=== PATIENT | male | born 1980 | race African-American/Black ===

== ENCOUNTER 2016-08-07 16:15 | Emergency (ER) | payer OTHER ==
--- NOTE | 2016-08-07 16:37 | ED ---
General Adult HPI - General Chief complaint: Recheck/Abnormal Lab/Rx Stated complaint: Syncope Time Seen by Provider: 08/07/16 16:24 Source: patient, RN notes reviewed Mode of arrival: ambulatory Limitations: no limitations - History of Present Illness Initial comments: 36-year-old male presents emergency Department for syncopal episode. Patient states that it single episode on Friday. Patient states he was outside I going talking on the phone states that he then woke up to his friends putting them in a vehicle. Patient did complain of left-sided pain in his chest wall and abdomen region at that time. Patient was seen at [facility] in which she states that they've evaluated him and discharge him with no testing. Patient states that he is advised to give second opinion he went to urgent care today felt that he had an abnormal EKG and symptoms emergency department. Patient denies any chest pain at this time is no shortness of breath. Patient denies fever, chills, headache, dizziness, focal weakness. - Related Data Home Medications Medication Instructions Recorded Confirmed No Known Home Medications [No 08/07/16 08/07/16 Known Home Medications] Allergies Allergy/AdvReac Type Severity Reaction Status Date / Time No Known Allergies Allergy Verified 08/07/16 16:38 Review of Systems ROS Statement: Those systems with pertinent positive or pertinent negative responses have been documented in the HPI. ROS Other: All systems not noted in ROS Statement are negative. Past Medical History Past Medical History: No Reported History Additional Past Medical History / Comment(s): anal fissure History of Any Multi-Drug Resistant Organisms: None Reported Additional Past Surgical History / Comment(s): nasal, CYST ON TAILBONE Past Psychological History: No Psychological Hx Reported Smoking Status: Former smoker Past Alcohol Use History: Occasional Past Drug Use History: Marijuana General Exam Limitations: no limitations General appearance: alert, in no apparent distress Head exam: Present: atraumatic, normocephalic, normal inspection Neck exam: Present: normal inspection, full ROM. Absent: tenderness, meningismus, lymphadenopathy Respiratory exam: Present: normal lung sounds bilaterally, chest wall tenderness (Mild left chest wall tenderness). Absent: respiratory distress, wheezes, rales, rhonchi, stridor Cardiovascular Exam: Present: regular rate, normal rhythm, normal heart sounds. Absent: systolic murmur, diastolic murmur, rubs, gallop, clicks GI/Abdominal exam: Present: soft, normal bowel sounds. Absent: distended, tenderness, guarding, rebound, rigid Course Vital Signs 08/07/16 08/07/16 16:18 17:38 Temperature 96.9 F L 97.6 F Pulse Rate 74 64 Respiratory 18 15 Rate Blood Pressure 133/63 140/88 O2 Sat by Pulse 98 100 Oximetry EKG Findings - EKG Comments: EKG Findings:: EKG performed at 16:27 normal sinus rhythm with a rate of 67. Normal 186 QRS duration 90 QT/QTC 372/393 Medical Decision Making - Medical Decision Making 36-year-old male presented for syncopal episode that happened on Friday. Patient's lab work is unremarkable at this time. EKG within normal limits chest x-ray within normals. Patient will be discharged at this time this most likely is a vasovagal episode as he was arguing. Patient be discharged with follow-up with primary care physician return parameters were discussed. - Lab Data Result diagrams: 08/07/16 16:35 08/07/16 16:35 Lab Results 08/07/16 08/07/16 08/07/16 Range/Units 16:35 16:35 16:35 WBC 6.1 (3.8-10.6) k/uL RBC 4.84 (4.30-5.90) m/uL Hgb 14.8 (13.0-17.5) gm/dL Hct 44.4 (39.0-53.0) % MCV 91.9 (80.0-100.0) fL MCH 30.6 (25.0-35.0) pg MCHC 33.3 (31.0-37.0) g/dL RDW 13.4 (11.5-15.5) % Plt Count 281 (150-450) k/uL Neutrophils % 50 % Lymphocytes % 42 % Monocytes % 4 % Eosinophils % 2 % Basophils % 0 % Neutrophils # 3.0 (1.3-7.7) k/uL Lymphocytes # 2.6 (1.0-4.8) k/uL Monocytes # 0.3 (0-1.0) k/uL Eosinophils # 0.1 (0-0.7) k/uL Basophils # 0.0 (0-0.2) k/uL PT (9.0-12.0) sec INR (<1.1) APTT (22.0-30.0) sec D-Dimer (<0.60) mg/L FEU Sodium 139 (137-145) mmol/L Potassium 3.8 (3.5-5.1) mmol/L Chloride 104 (98-107) mmol/L Carbon Dioxide 25 (22-30) mmol/L Anion Gap 10 mmol/L BUN 10 (9-20) mg/dL Creatinine 1.03 (0.66-1.25) mg/dL Est GFR (MDRD) Af Amer >60 (>60 ml/min/1.73 sqM) Est GFR (MDRD) Non-Af >60 (>60 ml/min/1.73 sqM) Glucose 116 H (74-99) mg/dL Calcium 9.3 (8.4-10.2) mg/dL Total Bilirubin 1.0 (0.2-1.3) mg/dL AST 30 (17-59) U/L ALT 36 (21-72) U/L Alkaline Phosphatase 68 (38-126) U/L Total Creatine Kinase 417 H (55-170) U/L CK-MB (CK-2) 3.0 H* (0.0-2.4) ng/mL CK-MB (CK-2) Rel Index 0.7 Troponin I <0.012 (0.000-0.034) ng/mL Total Protein 7.5 (6.3-8.2) g/dL Albumin 4.2 (3.5-5.0) g/dL 08/07/16 Range/Units 16:35 WBC (3.8-10.6) k/uL RBC (4.30-5.90) m/uL Hgb (13.0-17.5) gm/dL Hct (39.0-53.0) % MCV (80.0-100.0) fL MCH (25.0-35.0) pg MCHC (31.0-37.0) g/dL RDW (11.5-15.5) % Plt Count (150-450) k/uL Neutrophils % % Lymphocytes % % Monocytes % % Eosinophils % % Basophils % % Neutrophils # (1.3-7.7) k/uL Lymphocytes # (1.0-4.8) k/uL Monocytes # (0-1.0) k/uL Eosinophils # (0-0.7) k/uL Basophils # (0-0.2) k/uL PT 10.9 (9.0-12.0) sec INR 1.1 (<1.1) APTT 24.8 (22.0-30.0) sec D-Dimer <0.17 (<0.60) mg/L FEU Sodium (137-145) mmol/L Potassium (3.5-5.1) mmol/L Chloride (98-107) mmol/L Carbon Dioxide (22-30) mmol/L Anion Gap mmol/L BUN (9-20) mg/dL Creatinine (0.66-1.25) mg/dL Est GFR (MDRD) Af Amer (>60 ml/min/1.73 sqM) Est GFR (MDRD) Non-Af (>60 ml/min/1.73 sqM) Glucose (74-99) mg/dL Calcium (8.4-10.2) mg/dL Total Bilirubin (0.2-1.3) mg/dL AST (17-59) U/L ALT (21-72) U/L Alkaline Phosphatase (38-126) U/L Total Creatine Kinase (55-170) U/L CK-MB (CK-2) (0.0-2.4) ng/mL CK-MB (CK-2) Rel Index Troponin I (0.000-0.034) ng/mL Total Protein (6.3-8.2) g/dL Albumin (3.5-5.0) g/dL Disposition Clinical Impression: Episode of syncope Disposition: HOME SELF-CARE Condition: Stable Instructions: Syncope (ED) Additional Instructions: Please return to the Emergency Department if symptoms worsen or any other concerns. Time of Disposition: 17:42
[2016-08-07 16:50] LABS: Basophils % (A) 0 %; CH 30.4; CHCM 33.3; Eosinophils # (A) 0.1 k/uL (0-0.7); Eosinophils % (A) 2 %; HCT 44.4 % (39.0-53.0); HDW 2.45; HGB 14.8 gm/dL (13.0-17.5); Luc # (Auto) 0.12; Luc % (Auto) 2; Lymphocytes # (A) 2.6 k/uL (1.0-4.8); Lymphocytes % (A) 42 %; MCH 30.6 pg (25.0-35.0); MCHC 33.3 g/dL (31.0-37.0); MCV 91.9 fL (80.0-100.0); Monocytes # (A) 0.3 k/uL (0-1.0); Monocytes % (A) 4 %; Neutrophils % (A) 50 %; RBC 4.84 m/uL (4.30-5.90); RDW 13.4 % (11.5-15.5); WBC 6.1 k/uL (3.8-10.6); WBC (Perox) 6.01
[2016-08-07 17:03] LABS: ALT 36 U/L (21-72); AST 30 U/L (17-59); Alkaline Phosphatase 68 U/L (38-126); Anion Gap 10 mmol/L; Blood Urea Nitrogen 10 mg/dL (9-20); Calcium 9.3 mg/dL (8.4-10.2); Carbon Dioxide 25 mmol/L (22-30); Chloride 104 mmol/L (98-107); Glucose 116 mg/dL (74-99); INR 1.1 (<1.1); Non-African American GFR(MDRD) >60 (>60 ml/min/1.73 sqM); Partial Thromboplastin Time 24.8 sec (22.0-30.0); Potassium 3.8 mmol/L (3.5-5.1); Prothrombin Time 10.9 sec (9.0-12.0); Sodium 139 mmol/L (137-145); Total Protein 7.5 g/dL (6.3-8.2)
--- NOTE | 2016-08-07 17:10 | XR ---
EXAMINATION TYPE: XR chest 2V DATE OF EXAM: 08/07/2016 4:58 PM COMPARISON: NONE HISTORY: Chest pain TECHNIQUE: Frontal and lateral views of the chest are obtained. FINDINGS: Heart and mediastinum are normal. Lungs are clear. Diaphragm is normal. Bony thorax appear s normal. There are chest leads. IMPRESSION: Normal chest
[2016-08-07 17:15] LABS: Creatine Kinase 417 U/L (55-170)
[2016-08-07 17:28] LABS: Troponin I <0.012 ng/mL (0.000-0.034)
[2016-08-07 17:38] VITALS: BP 140/88; PULSE 64; RESP 15; TEMP 97.6
[2016-08-07 17:55] LABS: Appearance,Urine Clear (Clear); Bilirubin,Urine Negative (Negative); Glucose,Urine (UA) Negative (Negative); Ketones,Urine Negative (Negative); Leukocyte Esterase,Urine Negative (Negative); Nitrite,Urine Negative (Negative); PH, Urine 5.5 (5.0-8.0); Protein,Urine Trace (Negative); Specific Gravity,Urine 1.024 (1.001-1.035); UA Billing (MACRO vs. MICRO) CHEM
== END 2016-08-07 17:54 | disposition home or self-care (01) ==
LOC: EC 16:15
DX: R55 Syncope and collapse (principal); R07.89 Other chest pain; Z87.891 Personal history of nicotine dependence
CPT/HCPCS: 36415; 71020; 80053; 81003; 82550; 82553; 84484; 85025; 85379; 85610; 85730; 93005; 99284

== ENCOUNTER → 2017-12-22 | Outpatient (CLI) | payer OTHER ==
--- NOTE | 2017-12-22 08:17 | US ---
EXAMINATION TYPE: US liver DATE OF EXAM: 12/22/2017 COMPARISON: CT abdomen and pelvis October 07, 2009 CLINICAL HISTORY: R94.5 Abnormal Liver Function Testing. EXAM MEASUREMENTS: Liver Length: 17.5 cm Gallbladder Wall: 0.2 cm CBD: 0.3 cm Right Kidney: 9.6 x 6.4 x 4.7 cm Pancreas: Heterogeneous, tail obscured by overlying bowel gas Liver: fatty liver with focal fatty sparing area near gallbladder = 5.3 x 4.4 x 1.3cm Gallbladder: wnl Evidence for sonographic Garcia's sign: no CBD: wnl Right Kidney: No hydronephrosis or masses seen Portions of pancreas are secured by overlying bowel gas on images saved. Liver is noted heterogeneous ly hyperechoic felt to reflect diffuse fatty infiltration which correlates with 2010 CT. Evaluation f or focal masses is suboptimal due to the heterogeneity. No ductal dilatation is present. IMPRESSION: Prominent fatty infiltration of liver redemonstrated.
== END | disposition home or self-care (01) ==
LOC: RADUSWWP 07:31
PROVIDERS: ATTEND Internal Medicine
DX: K76.0 Fatty (change of) liver, not elsewhere classified (principal)
CPT/HCPCS: 76705

== ENCOUNTER 2019-06-07 07:50 | Emergency (ER) | payer OTHER ==
[2019-06-07 08:00] VITALS: BP 130/83; PULSE 75; RESP 18; TEMP 97.9
[2019-06-07] MEDS ORDERED: ONDANSETRON 4 MG ODT STARTER PACK 2 TAB BTL PO STA (08:20)
--- NOTE | 2019-06-07 08:23 | ED ---
General Adult HPI - General Chief complaint: Nausea/Vomiting/Diarrhea Stated complaint: vomiting, abd pain Time Seen by Provider: 06/07/19 08:05 Source: patient, RN notes reviewed Mode of arrival: ambulatory Limitations: no limitations - History of Present Illness Initial comments: 39-year-old male presents emergency Department chief complaint nausea vomiting diarrhea. Patient states it a few episodes morning cannot go to work. Patient states she has no abdominal pain this time. Patient states he took some Pepto- Bismol which helped. Denies any known fevers or chills no chest pain no shortness breath, ear pain. Patient states he is otherwise healthy. - Related Data Previous Rx's Medication Instructions Recorded Ondansetron Odt [Zofran Odt] 4 mg PO Q8HR PRN #10 tab 06/07/19 Allergies Allergy/AdvReac Type Severity Reaction Status Date / Time No Known Allergies Allergy Verified 08/07/16 16:38 Review of Systems ROS Statement: Those systems with pertinent positive or pertinent negative responses have been documented in the HPI. ROS Other: All systems not noted in ROS Statement are negative. Past Medical History Past Medical History: No Reported History Additional Past Medical History / Comment(s): anal fissure History of Any Multi-Drug Resistant Organisms: None Reported Additional Past Surgical History / Comment(s): nasal, CYST ON TAILBONE Past Psychological History: No Psychological Hx Reported Smoking Status: Current every day smoker Past Alcohol Use History: Occasional Past Drug Use History: Marijuana General Exam Limitations: no limitations General appearance: alert, in no apparent distress Head exam: Present: atraumatic, normocephalic, normal inspection ENT exam: Present: normal exam, normal oropharynx, mucous membranes moist Neck exam: Present: normal inspection, full ROM. Absent: tenderness, meningismus, lymphadenopathy Respiratory exam: Present: normal lung sounds bilaterally. Absent: respiratory distress, wheezes, rales, rhonchi, stridor Cardiovascular Exam: Present: regular rate, normal rhythm, normal heart sounds. Absent: systolic murmur, diastolic murmur, rubs, gallop, clicks GI/Abdominal exam: Present: soft, normal bowel sounds. Absent: distended, tenderness, guarding, rebound, rigid Back exam: Absent: CVA tenderness (R), CVA tenderness (L) Neurological exam: Present: alert, oriented X3 Skin exam: Present: warm, dry, intact, normal color. Absent: rash Course Vital Signs 06/07/19 07:57 Temperature 97.9 F Pulse Rate 75 Respiratory 18 Rate Blood Pressure 130/83 O2 Sat by Pulse 98 Oximetry Medical Decision Making - Medical Decision Making Patient was offered and lab work, IV fluid hydration and antiemetics. Patient states he has no specific complaints time it feels comfortable being discharged with Zofran and return for any worsening symptoms. Disposition Clinical Impression: Gastroenteritis Disposition: HOME SELF-CARE Condition: Stable Instructions (If sedation given, give patient instructions): Gastroenteritis (ED) Additional Instructions: Please return to the Emergency Department if symptoms worsen or any other concerns. Prescriptions: Ondansetron Odt [Zofran Odt] 4 mg PO Q8HR PRN #10 tab PRN Reason: Nausea Is patient prescribed a controlled substance at d/c from ED?: No Referrals: Olga Hylton MD [Primary Care Provider] - 1-2 days Time of Disposition: 08:22
== END 2019-06-07 08:33 | disposition home or self-care (01) ==
LOC: EC 07:50
DX: K52.9 Noninfective gastroenteritis and colitis, unspecified (principal); F17.200 Nicotine dependence, unspecified, uncomplicated
CPT/HCPCS: 99283; S0119

== ENCOUNTER 2021-08-26 06:06 | Emergency (ER) | payer BC, OTHER ==
[2021-08-26 06:18] VITALS: TEMP 98.2
[2021-08-26] MEDS ORDERED: ONDANSETRON ODT 4 MG TAB PO STA (07:14)
--- NOTE | 2021-08-26 07:26 | ED ---
General Adult HPI - General Chief complaint: Nausea/Vomiting/Diarrhea Stated complaint: Headache, Vomiting Time Seen by Provider: 08/26/21 07:05 Source: patient, RN notes reviewed Mode of arrival: ambulatory Limitations: no limitations - History of Present Illness Initial comments: 41-year-old male presents emergency from chief complaint of fever or chills bodyaches cough congestion nausea. Patient states that symptoms started last couple days. Patient states that he woke up with episode of vomiting diarrhea in which he presented today. Patient has no cervical past medical history no ALLERGIES. Patient denies any abdominal pain no chest pain or shortness of breath patient states that he has had some sick contacts. - Related Data Previous Rx's Medication Instructions Recorded Ondansetron Odt [Zofran Odt] 4 mg PO Q8HR PRN #10 tab 06/07/19 Ondansetron Odt [Zofran Odt] 4 mg PO Q8HR PRN #10 tab 08/26/21 Oseltamivir [Tamiflu] 75 mg PO Q12HR #10 cap 08/26/21 Allergies Allergy/AdvReac Type Severity Reaction Status Date / Time No Known Allergies Allergy Verified 08/07/16 16:38 Review of Systems ROS Statement: Those systems with pertinent positive or pertinent negative responses have been documented in the HPI. ROS Other: All systems not noted in ROS Statement are negative. Past Medical History Past Medical History: No Reported History Additional Past Medical History / Comment(s): anal fissure History of Any Multi-Drug Resistant Organisms: None Reported Additional Past Surgical History / Comment(s): nasal, CYST ON TAILBONE Past Psychological History: No Psychological Hx Reported Smoking Status: Current some day smoker Past Alcohol Use History: Occasional Past Drug Use History: Marijuana General Exam Limitations: no limitations General appearance: alert, in no apparent distress Head exam: Present: atraumatic, normocephalic, normal inspection Eye exam: Present: normal appearance, PERRL, EOMI. Absent: scleral icterus, conjunctival injection, periorbital swelling ENT exam: Present: normal exam, normal oropharynx, mucous membranes moist Neck exam: Present: normal inspection, full ROM. Absent: tenderness, meningismus, lymphadenopathy Respiratory exam: Present: normal lung sounds bilaterally. Absent: respiratory distress, wheezes, rales, rhonchi, stridor Cardiovascular Exam: Present: regular rate, normal rhythm, normal heart sounds. Absent: systolic murmur, diastolic murmur, rubs, gallop, clicks GI/Abdominal exam: Present: soft, normal bowel sounds. Absent: distended, tenderness, guarding, rebound, rigid Neurological exam: Present: alert, oriented X3 Course Vital Signs 08/26/21 06:13 Temperature 98.2 F Pulse Rate 96 Respiratory 16 Rate Blood Pressure 151/100 O2 Sat by Pulse 98 Oximetry Medical Decision Making - Medical Decision Making Patient is influenza be positive. Patient discharged in stable condition return parameters were discussed. Patient agrees to plan of discharge. - Lab Data Lab Results 08/26/21 08/26/21 Range/Units 06:19 06:19 Coronavirus (PCR) Not Detected (Not Detectd) Influenza Type A RNA Not Detected (Not Detectd) Influenza Type B (PCR) Detected H (Not Detectd) Disposition Clinical Impression: Influenza B Disposition: HOME SELF-CARE Condition: Stable Instructions (If sedation given, give patient instructions): Influenza (ED) Additional Instructions: Please return to the Emergency Department if symptoms worsen or any other concerns. Prescriptions: Oseltamivir [Tamiflu] 75 mg PO Q12HR #10 cap Ondansetron Odt [Zofran Odt] 4 mg PO Q8HR PRN #10 tab PRN Reason: Nausea Is patient prescribed a controlled substance at d/c from ED?: No Referrals: Olga Hylton MD [Primary Care Provider] - 1-2 days Time of Disposition: 07:26
[2021-08-26 07:34] VITALS: BP 165/100; PULSE 84; RESP 18
== END 2021-08-26 07:38 | disposition home or self-care (01) ==
LOC: EC 06:06
DX: R51.9 Headache, unspecified (principal); R11.10 Vomiting, unspecified; R11.2 Nausea with vomiting, unspecified
CPT/HCPCS: 87502; 87635

== ENCOUNTER 2021-09-08 05:51 | Emergency (ER) | payer BC, OTHER ==
[2021-09-08] MEDS ORDERED: LORazepam 1 MG TAB PO STA ×2 (06:52→07:09)
--- NOTE | 2021-09-08 06:58 | ED ---
SOB HPI - General Chief Complaint: Anxiety Stated Complaint: Not feeling well Time Seen by Provider: 09/08/21 06:42 Source: patient, RN notes reviewed Mode of arrival: ambulatory - History of Present Illness Initial Comments: This is a 41-year-old male who presents to the emergency department with shortness of breath, chest pain, and left leg numbness. Patient states that the middle of the night, he woke up with these symptoms. He has never experienced anything like this before. He took a walk around his block to see if the symptoms would improve, however they continued to persist. Also states that his blood pressure is much higher than normal. Denies any history of asthma or other pulmonary problems. Denies any fevers, chills, sore throat, cough, abdominal pain, nausea, vomiting, diarrhea, back pain, or headaches. MD Complaint: shortness of breath, chest pain Onset/Timin -: days(s) Context: recent URI - Related Data Previous Rx's Medication Instructions Recorded Ondansetron Odt [Zofran Odt] 4 mg PO Q8HR PRN #10 tab 06/07/19 Ondansetron Odt [Zofran Odt] 4 mg PO Q8HR PRN #10 tab 08/26/21 Ondansetron Odt [Zofran Odt] 4 mg PO Q8HR PRN #10 tab 08/26/21 Oseltamivir [Tamiflu] 75 mg PO Q12HR #10 cap 08/26/21 Oseltamivir [Tamiflu] 75 mg PO Q12HR #10 cap 08/26/21 Allergies Allergy/AdvReac Type Severity Reaction Status Date / Time No Known Allergies Allergy Verified 08/07/16 16:38 Review of Systems ROS Statement: Those systems with pertinent positive or pertinent negative responses have been documented in the HPI. ROS Other: All systems not noted in ROS Statement are negative. Past Medical History Past Medical History: No Reported History Additional Past Medical History / Comment(s): anal fissure History of Any Multi-Drug Resistant Organisms: None Reported Additional Past Surgical History / Comment(s): nasal, CYST ON TAILBONE Past Psychological History: No Psychological Hx Reported Smoking Status: Current some day smoker Past Alcohol Use History: Occasional Past Drug Use History: Marijuana General Exam Limitations: no limitations General appearance: alert, anxious Head exam: Present: atraumatic, normocephalic, normal inspection ENT exam: Present: normal exam, normal oropharynx, mucous membranes moist, normal external ear exam Neck exam: Present: normal inspection. Absent: tenderness, meningismus, ly mphadenopathy Respiratory exam: Present: normal lung sounds bilaterally, chest wall tenderness (left sided). Absent: respiratory distress, wheezes, rales, rhonchi, stridor Cardiovascular Exam: Present: regular rate, normal rhythm, normal heart sounds. Absent: systolic murmur, diastolic murmur, rubs, gallop, clicks Extremities exam: Present: full ROM, other (2+ dorsalis pedis and tibialis posterior pulses bilaterally. There is no increased heat, coolness, or discoloration to either extremity.). Absent: pedal edema, joint swelling, calf tenderness Neurological exam: Present: alert, oriented X3, CN II-XII intact Psychiatric exam: Present: anxious Skin exam: Present: warm, dry, intact, normal color. Absent: rash Course Vital Signs 09/08/21 09/08/21 09/08/21 06:35 07:13 07:37 Temperature 98.2 F Pulse Rate 73 64 Respiratory 18 16 Rate Blood Pressure 153/99 133/85 O2 Sat by Pulse 98 96 Oximetry Medical Decision Making - Medical Decision Making This is a 41-year-old male who presents to the emergency department for chest pain, shortness of breath, and left leg numbness. Patient has an unremarkable physical exam. Chest x-ray obtained revealing no acute cardiopulmonary process. EKG was also unremarkable. Patient's blood pressure is elevated, however he does have a history of hypertension and appears anxious in the examination room. His vitals were otherwise unremarkable. Patient was given 1 mg of Ativan for anxiety. Patient's blood pressure decreased while resting in the bed. Also states that he feels much better and feels ready for discharge. Patient declines any blood work or additional testing at this time. Work note provided. Return precautions reviewed in depth, the patient is instructed to return to the emergency department with any new, worsening, or concerning symptoms. Patient verbalized understanding. This case was discussed in detail with the attending ED physician. Presentation, findings, and treatment plan discussed in detail as well. - EKG Data EKG Comments: Sinus rhythm. Ventricular rate 65 bpm, ND interval 203 ms, QRS duration 90 ms, QTC 403 ms. - Radiology Data Radiology results: report reviewed, image reviewed Disposition Clinical Impression: Palpitations with regular cardiac rhythm Disposition: HOME SELF-CARE Instructions (If sedation given, give patient instructions): Noncardiac Chest Pain (ED) Additional Instructions: Return to the emergency department with any new, worsening, or concerning symptoms. Follow up with your primary care provider in 1-2 days. Is patient prescribed a controlled substance at d/c from ED?: No Referrals: Olga Hylton MD [Primary Care Provider] - 1-2 days
[2021-09-08 07:13] VITALS: TEMP 98.2
--- NOTE | 2021-09-08 07:26 | XR ---
EXAMINATION TYPE: XR chest 2V DATE OF EXAM: 09/08/2021 COMPARISON: 08/07/2016 HISTORY: Chest pain and palpitations TECHNIQUE: Frontal and lateral views of the chest are obtained. FINDINGS: There is no focal air space opacity, pleural effusion, or pneumothorax seen. The cardiac silhouette size is within normal limits. The osseous structures are intact. IMPRESSION: No acute cardiopulmonary process.
[2021-09-08 07:40] VITALS: BP 133/85; PULSE 64; RESP 16
== END 2021-09-08 07:55 | disposition home or self-care (01) ==
LOC: EC 05:51
DX: I49.9 Cardiac arrhythmia, unspecified (principal); F17.200 Nicotine dependence, unspecified, uncomplicated
CPT/HCPCS: 71046; 93005; 99285

== ENCOUNTER 2023-04-16 08:43 | Emergency (ER) | payer BC, OTHER ==
[2023-04-16 09:13] VITALS: BP 130/90; PULSE 78; RESP 18; TEMP 98.3
--- NOTE | 2023-04-16 10:05 | ED ---
ENT HPI - General Chief complaint: ENT Stated complaint: Throat pain,Body Aches Time Seen by Provider: 04/16/23 08:54 Source: patient, RN notes reviewed Mode of arrival: ambulatory Limitations: no limitations - History of Present Illness Initial comments: 43-year-old male presents emergency Department chief complaint of body aches, sore throat, congestion. Patient was recently exposed to COVID-19. Patient denies any reported fever no nausea vomiting diarrhea constipation. - Related Data Previous Rx's Medication Instructions Recorded Ondansetron Odt [Zofran Odt] 4 mg PO Q8HR PRN #10 tab 06/07/19 Ondansetron Odt [Zofran Odt] 4 mg PO Q8HR PRN #10 tab 08/26/21 Ondansetron Odt [Zofran Odt] 4 mg PO Q8HR PRN #10 tab 08/26/21 Oseltamivir [Tamiflu] 75 mg PO Q12HR #10 cap 08/26/21 Oseltamivir [Tamiflu] 75 mg PO Q12HR #10 cap 08/26/21 Allergies Allergy/AdvReac Type Severity Reaction Status Date / Time No Known Allergies Allergy Verified 04/16/23 08:54 Review of Systems ROS Statement: Those systems with pertinent positive or pertinent negative responses have been documented in the HPI. ROS Other: All systems not noted in ROS Statement are negative. Past Medical History Past Medical History: No Reported History Additional Past Medical History / Comment(s): anal fissure History of Any Multi-Drug Resistant Organisms: None Reported Additional Past Surgical History / Comment(s): nasal, CYST ON TAILBONE Past Psychological History: No Psychological Hx Reported Smoking Status: Current some day smoker Past Alcohol Use History: Occasional Past Drug Use History: Marijuana General Exam Limitations: no limitations General appearance: alert, in no apparent distress Head exam: Present: atraumatic, normocephalic, normal inspection Eye exam: Present: normal appearance, PERRL, EOMI. Absent: scleral icterus, conjunctival injection, periorbital swelling ENT exam: Present: normal exam, normal oropharynx, mucous membranes moist Neck exam: Present: normal inspection, full ROM. Absent: tenderness, meningismus, lymphadenopathy Respiratory exam: Present: normal lung sounds bilaterally. Absent: respiratory distress, wheezes, rales, rhonchi, stridor Cardiovascular Exam: Present: regular rate, normal rhythm, normal heart sounds. Absent: systolic murmur, diastolic murmur, rubs, gallop, clicks Course Vital Signs 04/16/23 08:52 Temperature 98.3 F Pulse Rate 78 Respiratory 18 Rate Blood Pressure 130/90 O2 Sat by Pulse 98 Oximetry Medical Decision Making - Medical Decision Making Was pt. sent in by a medical professional or institution (, [facility], [facility], urgent care, hospital, or senior living...) When possible be specific @ -No Did you speak to anyone other than the patient for history (EMS, parent, family, police, friend...)? What history was obtained from this source @ -No Did you review nursing and triage notes (agree or disagree)? Why? @ -I reviewed and agree with nursing and triage notes Were old charts reviewed (outside hosp., previous admission, EMS record, old EKG, old radiological studies, urgent care reports/EKG's, senior living records)? Report findings @ -No old charts were reviewed Differential Diagnosis (chest pain, altered mental status, abdominal pain women, abdominal pain men, vaginal bleeding, weakness, fever, dyspnea, syncope, headache, dizziness, GI bleed, back pain, seizure, CVA, palpatations, mental health, musculoskeletal)? @ -COVID 19, RSV, influenza, pneumonia, acute bronchitis, URI, this list is not all inclusive EKG interpreted by me (3pts min.). @ -None X-rays interpreted by me (1pt min.). @ -None done CT interpreted by me (1pt min.). @ -None done U/S interpreted by me (1pt. min.). @ -None done What testing was considered but not performed or refused? (CT, X-rays, U/S, labs)? Why? @ -None What meds were considered but not given or refused? Why? @ -None Did you discuss the management of the patient with other professionals (professionals i.e. [facility], [facility], lab, RT, psych nurse, high school social studies teacher, laborer heading, teacher, chief innovation officer, case management social worker)? Give summary @ -No Was smoking cessation discussed for >3mins.? @ -No Was critical care preformed (if so, how long)? @ -No Were there social determinants of health that impacted care today? How? (Homelessness, low income, unemployed, alcoholism, drug addiction, transportation, low edu. Level, literacy, decrease access to med. care, senior living, rehab)? @ -No Was there de-escalation of care discussed even if they declined (Discuss DNR or withdrawal of care, Hospice)? DNR status @ -No What co-morbidities impacted this encounter? (DM, HTN, Smoking, COPD, CAD, Cancer, CVA, ARF, Chemo, Hep., AIDS, mental health diagnosis, sleep apnea, morbid obesity)? @ -None Was patient admitted / discharged? Hospital course, mention meds given and route, prescriptions, significant lab abnormalities, going to OR and other pertinent info. @ -[Discharge patient has URI symptoms. Patient has COVID-19 positive. Undiagnosed new problem with uncertain prognosis? @ -No Drug Therapy requiring intensive monitoring for toxicity (Heparin, Nitro, Insulin, Cardizem)? @ -No Were any procedures done? @ -No Diagnosis/symptom? @ -COVID-19 Acute, or Chronic, or Acute on Chronic? @ -Acute Uncomplicated (without systemic symptoms) or Complicated (systemic symptoms)? @ -Uncomplicated Side effects of treatment? @ -No Exacerbation, Progression, or Severe Exacerbation? @ -No Poses a threat to life or bodily function? How? (Chest pain, USA, MD, pneumonia, PE, COPD, DKA, ARF, appy, cholecystitis, CVA, Diverticulitis, Homicidal, Suicidal, threat to staff... and all critical care pts) @ -No - Lab Data Lab Results 04/16/23 04/16/23 Range/Units 08:55 08:58 Influenza Type A (PCR) Not Detected (Not Detectd) Influenza Type B (PCR) Not Detected (Not Detectd) RSV (PCR) Not Detected (Not Detectd) SARS-CoV-2 (PCR) Detected A (Not Detectd) Group A Strep (PCR) NOT DETECTED (Not Detectd) Disposition Clinical Impression: COVID-19 Disposition: HOME SELF-CARE Condition: Stable Instructions (If sedation given, give patient instructions): COVID-19 (Coronavirus Disease 2019) (ED) Additional Instructions: Please return to the Emergency Department if symptoms worsen or any other concerns. Is patient prescribed a controlled substance at d/c from ED?: No Referrals: None,Stated [Primary Care Provider] - 1-2 days Time of Disposition: 10:05
== END 2023-04-16 10:18 | disposition home or self-care (01) ==
LOC: EC 08:43
DX: U07.1 COVID-19 (principal); F17.200 Nicotine dependence, unspecified, uncomplicated; F12.90 Cannabis use, unspecified, uncomplicated
CPT/HCPCS: 87636; 87651; 99283